=== PATIENT | male | born 1965 | race Caucasian/White ===

== ENCOUNTER 2017-11-30 08:27 | Inpatient (IN) | payer OTHER ==
[~2017-11-30] VITALS: Ht 180.3 cm; Wt 76.7 kg
[~2017-11-30 08:27] MED LIST: MOBIC7.5 MG PO; NOHOMEMEDICATIONS; NORCO 5-325 TA1 EACH PO; NORVASC 5 MG TAB5 MG PO; PERCOCET 5-3251 EACH PO
[2017-11-30 08:51] VITALS: BP 237/114
[2017-11-30 09:10] LABS: ABSOLUTE BASOPHILS 0.1 thou/uL (0.0-0.2); ABSOLUTE EOSINOPHILS 0.3 thou/uL (0.0-0.7); ABSOLUTE LYMPHOCYTES 1.2 thou/uL (0.8-5.3); ABSOLUTE MONOCYTES 0.5 thou/uL (0.0-1.2); ABSOLUTE NEUTROPHILS 7.4 thou/uL (1.6-8.1); BASOPHILS 0.7 %; EOSINOPHILS 2.7 %; HEMATOCRIT 40.7 % (42.0-52.0); HEMOGLOBIN 13.8 gm/dL (14.0-18.0); LYMPHOCYTES 12.7 %; MCHC 33.8 g/dL (28.0-37.0); MCV 88.8 fL (80.0-100.0); MONOCYTES 5.6 %; NUCLEATED RBCS 0 /100WBC; PLATELET COUNT* 360 thou/uL (150-400); POLYS 78.3 %; RBC 4.59 mil/uL (4.50-6.00); RDW-CV 14.2 % (10.5-14.5); WBC 9.5 thou/uL (4.0-11.0)
[2017-11-30 09:20] LABS: ANION GAP 4 mmol/L (7-16); BUN 19 mg/dL (7-18); CALCIUM 8.8 mg/dL (8.5-10.1); CHLORIDE 105 mmol/L (98-107); CO2 30 mmol/L (21-32); CREATININE 1.4 mg/dL (0.6-1.3); GLUCOSE 101 mg/dL (70-99); POTASSIUM 3.6 mmol/L (3.5-5.1); SODIUM 139 mmol/L (136-145)
[2017-11-30 09:31] LABS: ALBUMIN 3.1 g/dL (3.4-5.0); ALKALINE PHOSPHATASE 101 U/L (46-116); LIPASE 135 U/L (73-393); SGOT 14 U/L (15-37); SGPT 15 U/L (30-65); TOTAL BILIRUBIN 0.2 mg/dL (<0.1-1.0); TOTAL PROTEIN 7.7 g/dL (6.4-8.2); TROPONIN-I LEVEL <0.06 ng/mL (<0.06)
[2017-11-30 13:29] VITALS: BP 149/86
[2017-11-30 14:15] VITALS: BP 223/92
[2017-11-30 16:17] VITALS: BP 238/92
--- NOTE | 2017-11-30 16:37 | EKG ---
[place] [address] ELECTROCARDIOGRAM REPORT Name: STEFFI GRISSOM Room: [address] ADM IN .R.#: [id number] Admission: 11/30/17 Attend Phys: Luiza Shelton MD Discharge: Date of : 63 Report #: [id number] THIS REPORT FOR: //name// [facility] ED Test Date: 2017-11-30 Test Time: 08:57:36 Pat Name: STEFFI GRISSOM Department: Room: [facility] Gender: M Client Services Associate: Myles KNAPP : 1965 Requested By: Jass Clark Order Number: [id number] MD: Jeff Berman Measurements Intervals [place] Rate: 75 P: 63 KS: 144 QRS: -26 QRSD: 120 T: 0 QT: 408 QTc: 456 Interpretive Statements Sinus rhythm Biatrial enlargement Left ventricular hypertrophy Anterior ST elevation, probably due to LVH Compared to ECG 06/13/2009 18:49:48 Incomplete right bundle-branch block no longer present T-wave abnormality no longer present Electronically Signed On 11-30-2017 16:37:47 CDT by Jeff Berman [email or web address] <ELECTRONICALLY SIGNED> By: Jeff Berman MD, [facility] 11/30/17 [id number] Jeff Berman MD, [facility] /EPI
--- NOTE | 2017-11-30 16:38 | EKG ---
[place] [address] ELECTROCARDIOGRAM REPORT Name: STEFFI GRISSOM Room: [address] ADM IN [facility].#: [id number] Admission: 11/30/17 Attend Phys: Luiza Shelton MD Discharge: Date of : 63 Report #: [id number] THIS REPORT FOR: //name// [facility] ED Test Date: 2017-11-30 Test Time: 09:19:09 Pat Name: STEFFI GRISSOM Department: Room: [facility] Gender: It Portfolio Manager: Myles KNAPP : 1965 Requested By: Jass Clark Order Number: [id number] MD: Jeff Berman Measurements Intervals [place] Rate: 62 P: 33 VT: 144 QRS: -30 QRSD: 121 T: -21 QT: 433 QTc: 440 Interpretive Statements Sinus rhythm Left ventricular hypertrophy Nonspecific T abnormalities, inferior leads ST elev, probable normal early repol pattern Electronically Signed On 11-30-2017 16:38:43 CDT by Jeff Berman [email or web address] <ELECTRONICALLY SIGNED> By: Jeff Berman MD, [facility] 11/30/17 1638 8 8 Jeff Berman MD, [facility] /EPI
--- NOTE | 2017-11-30 16:40 | EKG ---
[place] [address] ELECTROCARDIOGRAM REPORT Name: STEFFI GRISSOM Room: [address] ADM IN [facility].#: [id number] Admission: 11/30/17 Attend Phys: Luiza Shelton MD Discharge: Date of : 63 Report #: [id number] THIS REPORT FOR: //name// [facility] ED Test Date: 2017-11-30 Test Time: 09:57:53 Pat Name: STEFFI GRISSOM Department: Room: [facility] Gender: M Drilling Engineer: Myles KNAPP : 1965 Requested By: Jass Clark Order Number: [id number] MD: Jeff Berman Measurements Intervals [place] Rate: 60 P: 40 RI: 148 QRS: -23 QRSD: 110 T: -23 QT: 456 QTc: 456 Interpretive Statements Sinus rhythm Left ventricular hypertrophy Nonspecific T abnormalities, inferior leads ST elevation, consider early repolarization Electronically Signed On 11-30-2017 16:40:45 CDT by Jeff Berman [email or web address] <ELECTRONICALLY SIGNED> By: Jeff Berman MD, [facility] 11/30/17 1640 6 Jeff Berman MD, [facility] /EPI
--- NOTE | 2017-11-30 17:08 | 2DMMODE ---
[place] [address] 2 D/M-MODE ECHOCARDIOGRAM Name: STEFFI GRISSOM Room: [address] IN [facility]#: [id number] Admission: 11/30/17 Attend Phys: Luiza Shelton, Discharge: Date of : 63 Date of Service: 11/30/17 1708 Report #: [id number] THIS REPORT FOR: //name// APPROVED REPORT Study performed: 11/30/2017 16:09:32 EXAM: Comprehensive 2D, Doppler, and color-flow Echocardiogram Patient Location: In-Patient Room #: 220 Status: routine BSA: 1.95 HR: 70 bpm BP: 149/86 mmHg Rhythm: NSR Other Information Study Quality: Good Indications Murmur 2D Dimensions IVSd: 11.69 (7-11mm) LVOT Diam: 20.11 (18-24mm) LVDd: 52.74 mm PWd: 11.94 (7-11mm) Ascending Ao: 29.87 (22-36mm) LVDs: 32.44 (25-40mm) Aortic Root: 31.03 mm Volumes Left Atrial Volume (Systole) LA ESV Index: 41.80 mL/m2 Aortic Valve AoV Peak Merritt.: 2.82 m/s AO Peak Gr.: 31.88 mmHg LVOT Max P.91 mmHg AO Mean Gr.: 19.24 mmHg LVOT Mean P.83 mmHg LVOT Max V: 1.73 m/s AO V2 VTI: 56.53 cm LVOT Mean V: 1.11 m/s SHANNON (VTI): 1.86 cm2 LVOT V1 VTI: 33.03 cm AI Newberry: 4.20 m/s2 AI PHT: 389.77 ms Mitral Valve E/A Ratio: 0.81 [place] [address] 2 D/M-MODE ECHOCARDIOGRAM Name: STEFFI GRISSOM Room: [address] IN ..#: [id number] Admission: 11/30/17 Attend Phys: Luiza Shelton, Discharge: Date of : 63 Date of Service: 11/30/17 1708 Report #: [id number] MV Decel. Time: 215.48 ms MV E Max Merritt.: 1.22 m/s MV PHT: 62.49 ms MVA (PHT): 3.52 cm2 TDI E/Lateral E': 12.20 E/Medial E': 17.43 Medial E' Merritt.: 0.07 m/s Lateral E' Merritt.: 0.10 m/s Pulmonary Valve PV Peak Merritt.: 1.02 m/s PV Peak Gr.: 4.17 mmHg Tricuspid Valve RAP Estimate: 5.00 mmHg TR Peak Gr.: 39.77 mmHg RVSP: 45.00 mmHg PA Pressure: 45.00 mmHg Left Ventricle The left ventricle is normal size. There is normal LV segmental wall motion. Mild concentric left ventricular hypertrophy. Left ventricular systolic function is normal. The left ventricular ejection fraction is within the normal range. LVEF is 60-65%. Grade I - abnormal relaxation pattern. Right Ventricle The right ventricle is normal size. The right ventricular systolic function is normal. Atria Left atrium is mild to moderately dilated. The right atrium size is normal. Aortic Valve Mild aortic valve sclerosis. Moderate aortic regurgitation. Mild aortic stenosis.mean gradient 20mmHg Mitral Valve The mitral valve is normal in structure. Mild mitral regurgitation. No evidence of mitral valve stenosis. Tricuspid Valve The tricuspid valve is normal in structure. Mild tricuspid regurgitation. Moderate pulmonary hypertension[place] [address] 2 D/M-MODE ECHOCARDIOGRAM Name: STEFFI GRISSOM Room: [address]#: [id number] Admission: 11/30/17 Attend Phys: Luiza Shelton, Discharge: Date of : 63 Date of Service: 11/30/17 1708 Report #: [id number] The pulmonary valve is normal in structure. There is no pulmonic valvular regurgitation. Great Vessels The aortic root is normal in size. IVC is normal in size and collapses >50% with inspiration. Pericardium There is no pericardial effusion. <Conclusion> LVEF is 60-65%. Mild concentric left ventricular hypertrophy. There is normal LV segmental wall motion. Grade I - abnormal relaxation pattern. Mild aortic valve sclerosis. Mild aortic stenosis.mean gradient 20mmHg Moderate aortic regurgitation. Mild mitral regurgitation. Mild tricuspid regurgitation. Moderate pulmonary hypertension. <ELECTRONICALLY SIGNED> By: Jarad Doss MD, FACC 11/30/171707 07 07 Jarad Doss MD, FACC /INF
--- NOTE | 2017-11-30 17:56 | NUR ---
PT ADMITTED TO ROOM 220 VIA WHEELCHAIR FROM ER AT 1415. PAIN RATED 6/10 IN RIGHT SHOULDER DOWN THE ENTIRE ARM. TINGLING NOTED IN HIS RIGHT ELBOW AND RIGHT PINKY FINGER. NO OTHER REPORTS OF PAIN. ASSESSMENT CHARTED. BLOOD PRESSURE ELEVATED BUT OTHERWISE VSS. NEW ORDER FOR PO BLOOD PRESSURE MEDICINE WELL PRN IV PUSH BLOOD PRESSURE MEDICATION GIVEN. PAIN IS BEING WELL CONTROLLED WITH PO/IV COMBINATION. NPO AT MIDNIGHT FOR A STRESS TEST IN THE MORNING.
[2017-11-30 20:00] VITALS: BP 174/79
[2017-11-30 20:00] LABS: AMP/METHAMP POSITIVE (Negative); BARBITURATES Negative (Negative); BENZODIAZEPINES Negative (Negative); COCAINE Negative (Negative); METHADONE Negative (Negative); OPIATES POSITIVE (Negative); PCP Negative (Negative); THC Negative (Negative)
--- NOTE | 2017-11-30 22:56 | NUR ---
ASSUMED PT CARE REPORT RECEIVED FROM NURSE. PT IS ALERT AWAKE ORIENTED X4 SINUS RYTHM ON THR MANAGER SUMMER. COMPLAINT OF PAIN. BP 172/79. MORPHINE GIVEN FOR PAIN. CLONIDINE PATCH APPLIED ORDERED. CALL LIGHT AT REACH. WILL CONTINUE TO MONITOR.
[2017-12-01] VITALS (8 sets, daily range): BP systolic 160–206; BP diastolic 68–95
[2017-12-01 04:07] LABS: HEMATOCRIT 40.6 % (42.0-52.0); HEMOGLOBIN 13.2 gm/dL (14.0-18.0); MCH 28.9 pg (26.0-34.0); MCHC 32.4 g/dL (28.0-37.0); MCV 89.2 fL (80.0-100.0); NUCLEATED RBCS 0 /100WBC; PLATELET COUNT* 355 thou/uL (150-400); RBC 4.55 mil/uL (4.50-6.00); RDW-CV 14.2 % (10.5-14.5); WBC 12.8 thou/uL (4.0-11.0)
[2017-12-01 04:16] LABS: CALCIUM 8.5 mg/dL (8.5-10.1); CREATININE 1.3 mg/dL (0.6-1.3)
[2017-12-01 04:18] LABS: POTASSIUM 4.6 mmol/L (3.5-5.1)
[2017-12-01 04:31] LABS: ABSOLUTE LYMPHOCYTES 1.4 thou/uL (0.8-5.3); ABSOLUTE MONOCYTES 0.6 thou/uL (0.0-1.2); ABSOLUTE NEUTROPHILS 10.8 thou/uL (1.6-8.1)
[2017-12-01 04:32] LABS: PLATELET ESTIMATE ADEQUATE
--- NOTE | 2017-12-01 04:49 | NUR ---
PT IS ANXIOUS IN THE MORNING AT AROUND 04:30. HE WANTS TO TAKE A WALK AROUND THE FLOOR. NURSE STANDS BY PT PT WALK IN THE BEAN. BP 206.79. HYDRALIZINE TO BE GIVEN A S ORDERED. PAIN PILL TO BE GIVEN WITH AM MEDS.
[2017-12-01] MEDS ORDERED: COZAAR 50 MG TA50 M1 PO (07:57)
[2017-12-01] MEDS ORDERED: ASPIR 8181 MG PO (07:57)
--- NOTE | 2017-12-01 10:00 | NUR ---
ASSUMED CARE OF PT AT 0730. PT RESTING IN BED. PT A&0X4,DENIES ANY PAIN OR SHORTNESS OF BREATH AT THIS TIME. PT TRACING SR ON THE JIVE DEVELOPER. NPO AT THIS TIME FOR CARDIAC STRESS TEST. ON RA SAT UPPER 90'S. IVF. PT UP SBA TO BATHROOM. PT GOAL FOR TODAY IS CARDIAC STRESS TEST AND MAINTAIN BLOOD PRESSURE SBP BELOW 150 AND PAIN MGMT. AM ASSESSMENT CHARTED. MEDICATIONS PER MAR. PT REPOSITIONS SELF. HOURLY ROUNDING OBSERVED. BED IN LOW POSITION. CALL LIGHT WITHIN REACH. WILL CONTINUE PLAN OF CARE.
--- NOTE | 2017-12-01 12:14 | CARDNUC ---
[place] [address] CARDIAC NUCLEAR IMAGING REPORT Name: STEFFI GRISSOM Room: [address] IN [facility]#: [id number] Admission: 11/30/17 Attend Phys: Luiza Shelton, Discharge: Date of : 63 Date of Service: 12/01/17 1213 Report #: [id number] THIS REPORT FOR: //name// APPROVED REPORT Imaging Protocol: Rest Tc-99m/Stress Tc-99m 1 day Study performed: 11/30/2017 16:27:00 RAEGAN Tech:DEYA Brown BMI: 0 Resting Data Rest SPECT myocardial perfusion imaging was performed in supine position 30 minutes following the intravenous injection of 11.8 mCi of Tc-99m Sestamibi. Time of rest injection: 0900 Date: 12/01/2017 Time of rest imagin The images were gated to evaluate regional wall motion and calculate left ventricular ejection fraction. Administration Route: IV Stress Test Details BP ECG Perfusion Rest only images were interpreted as pt. refused Lexiscan and BP was too high for exercise per protocol.It showed relatively uniform perfusion, there was a mild intensity inferior defect which could be artifact. Wall Motion normal all segments Nuclear Conclusion ECG Findings: n/a Clinical Findings: n/a Nuclear Findings: nondiagnostic [facility] [address] [place] [address] CARDIAC NUCLEAR IMAGING REPORT Name: STEFFI GRISSOM Room: [address] ADM IN M.R.#: [id number] Admission: 11/30/17 Attend Phys: Luiza Shelton, Discharge: Date of : 63 Date of Service: 12/01/17 1213 Report #: [id number] There is small inferior abnormality which could be artifact, recommend repeating TM portion when BP is improved. <ELECTRONICALLY SIGNED> By: Jarad Doss MD, FACC 12/01/171212 12 12 Jarad Doss MD, FACC /INF
[2017-12-01] MEDS ORDERED: HYDROCHLOROTHIA25 M2 PO (14:41)
--- NOTE | 2017-12-01 17:53 | NUR ---
DISCHARGE ORDERS RECEIVED. DISCHARGE INSTRUCTIONS, CARE NOTES, SCRIPTS AND FOLLOW UP APPTS GIVEN TO PT. PT COMMUNICATES UNDERSTANDING OF DISCHARGE TEACHING. PT TO FOLLOW UP WITH PCP FOR BLOOD PRESSURE MGMT. IV AND FACETOR REMOVED. PT DISCHARGED WITH ALL BELONGINGS AND PAPERWORK VIA WHEELCHAIR WITH NURSING STAFF TO OWN PERSONAL VEHICLE.
--- NOTE | 2017-12-04 09:11 | CON ---
[address] [address] CONSULTATION Name: STEFFI GRISSOM Room: [address] IN ..#: [id number] Admission: 11/30/17 Attend Phys: Luiza Shelton MD Discharge: 12/01/17 Date of : 63 Report #: [id number] THIS REPORT FOR: //name// CC: JESSICA physician/PCP Luiza Shelton DATE OF SERVICE: 11/30/2017 REQUESTING PHYSICIAN: CHIEF COMPLAINT: Shoulder pain, abnormal EKG. HISTORY OF PRESENT ILLNESS: The patient is a 52-year-old smoker, presented with right shoulder pain radiating to his right chest wall. It occurs at rest. It does not radiate to the left side. It goes all the way his right fingertip. He denies specific injury. He has chronic shortness of breath and has a known history of cardiac murmur. The reason we are asked to see him is because his ECG demonstrated deep T-wave inversions in the inferior leads in the setting of LVH. Previous ECGs demonstrate the LVH, but the T-wave inversion is more pronounced today. He has no documented history of heart disease, but carries a significant history of untreated hypertension, his blood pressure on presentation was over 220 systolic. He has a history of cardiac murmur. He is a smoker daily. He drinks fairly regularly. He does not have a primary care doctor. He denies orthopnea, PND, or weight gain. Denies fevers or chills. Denies neuro symptoms, numbness, weakness, visual changes, or slurred speech. He denies any bleeding episodes. PAST MEDICAL HISTORY: The aforementioned history of heart murmur. He denies cardiovascular followup. SOCIAL HISTORY: He is a tobacco user and drinks fairly regularly. FAMILY HISTORY: Noncontributory. REVIEW OF SYSTEMS: GASTROINTESTINAL: No nausea, vomiting, hematemesis. NEUROLOGIC: Denies headaches, blurry vision, slurred speech or seizures. HEMATOLOGIC: No anemia or bleeding disorders. RENAL: No history of kidney failure. ENDOCRINE: He is not known to be a diabetic. His lipid status is not known. SKIN: No rashes. GENERAL: No [place] [address] CONSULTATION Name: STEFFI GRISSOM Room: [address]#: [id number] Admission: 11/30/17 Attend Phys: Luiza Shelton MD Discharge: 12/01/17 Date of : 63 Report #: [id number] OBJECTIVE: VITAL SIGNS: After being treated for pain, his blood pressure has decreased to 150/81, his pulse is 62, respiratory rate 15, O2 sats 99% on 2 liters. GENERAL: This is an unkempt, middle-aged male. He is alert, oriented, no apparent distress. HEENT: Eyes: EOMs intact. No facial asymmetry. NECK: Supple. No jugular venous distention. Upstrokes are normal. CARDIOVASCULAR: Regular. There is a faint systolic murmur. I cannot hear rub or gallop. LUNGS: Clear to auscultation bilaterally. ABDOMEN: Soft, nontender. EXTREMITIES: No peripheral edema, there is no cyanosis. PSYCHIATRIC: The patient has appropriate mood and affect. LABORATORY DATA: Electrocardiogram demonstrates a sinus rhythm, LVH, Q-waves in lead 3 only and there is T-wave inversion in lead 3 only. Precordial leads are normal other than an LVH. His cardiac troponin level is normal x 1 set at 0.06. His creatinine is 1.4, BUN is 19. Sodium is 139, potassium 3.6. Hemoglobin is 13.8. Chest x-ray shows mild cardiomegaly without evidence of CHF. IMPRESSION: 1. Abnormal ECG. Seemingly this is related to his hypertensive heart disease, which is likely present, but he does have cardiovascular risk factors including age, tobacco use and unknown lipid status and I recommend further evaluation with a pharmacologic stress test. It does not appear he is having acute coronary syndrome. 2. Malignant hypertension. I would treat him aggressively with an ARB. He will need a generic therapy as he probably has some compliance issues and may have cost issues. 3. Tobacco abuse. Cessation is recommended. 4. Shoulder pain. This is probably musculoskeletal and I would treat this accordingly with anti-inflammatories. A stress test has been ordered, however. 5. Murmur. I have arranged for an echocardiogram. <ELECTRONICALLY SIGNED> By: Eliezer Hernandez MD, FACC 12/04/17 0911 1015 [id number] Doss MD, FACC /nt
== END 2017-12-01 17:55 | disposition home or self-care (01) | DRG 305 ==
LOC: M.ERS 08:27 → M.2W 10:10 → M.TBA-ER 10:10 → M.2W 14:27
PROVIDERS: Emergency Medicine Emergency Medical Services; Internal Medicine; ADMIT Internal Medicine
DX: I16.1 Hypertensive emergency (principal); I43 Cardiomyopathy in diseases classified elsewhere; I16.0 Hypertensive urgency; M25.421 Effusion, right elbow; M19.011 Primary osteoarthritis, right shoulder; F17.210 Nicotine dependence, cigarettes, uncomplicated; I20.8 Other forms of angina pectoris; I13.10 Hypertensive heart and chronic kidney disease without heart failure, with stage 1 through stage 4 chronic kidney disease, or unspecified chronic kidney disease; N18.2 Chronic kidney disease, stage 2 (mild); R91.1 Solitary pulmonary nodule; T43.625A Adverse effect of amphetamines, initial encounter; G89.29 Other chronic pain; Z79.82 Long term (current) use of aspirin; Z79.899 Other long term (current) drug therapy; Z90.49 Acquired absence of other specified parts of digestive tract